=== PATIENT | male | born 2000 | race Two or more races ===

== ENCOUNTER 2023-03-18 16:35 | Inpatient (IN) | payer OTHER ==
[~2023-03-18] VITALS: Ht 167.6 cm; Wt 75.1 kg
[2023-03-18] MEDS ORDERED: NITROGLYCERIN 0.4 MG SL TAB SL PRN (21:45)
[2023-03-18] MEDS: SODIUM CHLORIDE 0.9% 1,000 ML IV SCH (21:45)
[2023-03-18] MEDS ORDERED: MORPHINE SULFATE INJ 2 MG/ml SYRG IV PRN (21:45)
[2023-03-18 22:30] VITALS: BP 108/66; PULSE 97; RESP 18; TEMP 98.5; O2SAT 100
[2023-03-18 22:48] VITALS: BP 108/66; PULSE 97; RESP 18; TEMP 98.5
[2023-03-18 23:00] LABS: Mean Corpuscular Volume 80.2 fL (80.0-100.0)
[2023-03-18 23:02] LABS: Mean Corpuscular Hemoglobin 27.5 pg (28.0-32.0); Mean Corpuscular Hgb Conc. 34.3 g/dL (32.0-36.0); Red Cell Distribution Width 17.6 % (11.8-14.3); White Blood Cell 2.1 10^3/uL (4.4-10.8)
[2023-03-18 23:12] LABS: INR 1.12 (0.9-1.15); Partial Thromboplastin Time 26.6 SEC (24.5-34.5); Prothrombin Time 11.7 sec (9.3-11.8)
[2023-03-18 23:13] LABS: Alanine Aminotransferase 21 U/L (7-40); Albumin 4.1 g/dL (3.2-4.8); Alkaline Phosphatase 79 U/L (46-116); Anion Gap 8 (5-15); Aspartate Aminotransferase 25 U/L (13-40); BUN/Creatinine Ratio 12.9 (10.0-20.0); Bilirubin, Total 0.3 mg/dL (0.2-1.0); Blood Urea Nitrogen 15 mg/dL (9-23); Calcium 8.9 mg/dL (8.7-10.4); Carbon Dioxide 24 mmol/L (20-30); Chloride 110 mmol/L (98-107); Glucose 104 mg/dL (74-106); Potassium 3.6 mmol/L (3.5-5.1); Sodium 142 mmol/L (136-145); Total Protein 6.7 g/dL (5.7-8.2)
[2023-03-18 23:24] LABS: Hemoglobin 5.5 g/dL (13.5-17.5)
[2023-03-18 23:28] LABS: Band Neutrophils % (manual) 0; Basophils % (manual) 0 (0.0-2.0); Eosinophils % (manual) 0 (0-7); Metamyelocytes % 0; Myelocytes % 0; Promyelocytes % 0; Reactive Lymphocytes 0
[2023-03-18 23:33] LABS: Thyroid Stimulating Hormone 3.66 uIU/mL (0.358-3.74)
[2023-03-19] VITALS (19 sets, daily range): BP systolic 93–128; BP diastolic 52–85; PULSE 68–100; RESP 16–18; TEMP 97.5–99.2; O2SAT 99–100
[2023-03-19 00:18] LABS: Anisocytosis Slight; Blast Cells 1; Lymphocytes % (manual) 93 (10.0-50.0); Monocytes % (manual) 2 (0-12)
[2023-03-19 00:19] LABS: Hypochromia Slight; Ovalocytes FEW; Platelet Estimate Decreased; Stomatocytes Few
[2023-03-19 04:50] LABS: Urine Bacteria NONE SEEN /hpf (None Seen); Urine Blood Negative /uL (Negative); Urine Clarity Clear (Clear); Urine Color Yellow (Yellow); Urine Mucus FEW (None Seen); Urine Protein, UAD Negative (Negative); Urine Specific Gravity 1.023 (1.001-1.035); Urine Urobilinogen Normal (Negative); Urine WBC 1 /hpf (0 - 3)
[2023-03-19] MEDS ORDERED: OMNIPAQUE 12mg/ml 500ml ORAL SOLUTION PO ONE (10:16)
[2023-03-19] MEDS: SODIUM CHLORIDE 0.9% 1,000 ML IV SCH (12:30)
[2023-03-19 15:16] LABS: % Iron Saturation 91.4 % (20-55)
[2023-03-19 15:22] LABS: Folate (Folic Acid) 6.98 ng/mL (>5.38)
[2023-03-19 15:27] LABS: Erythrocyte Sedimentation Rate 69 mm/hr (0-20)
[2023-03-19 20:28] LABS: Hemoglobin 6.8 g/dL (13.5-17.5)
[2023-03-19 22:01] LABS: Rapid Influenza A Negative (Negative)
[2023-03-19 22:02] LABS: Rapid Influenza B Positive (Negative)
[2023-03-20] VITALS (10 sets, daily range): BP systolic 108–132; BP diastolic 68–91; PULSE 60–83; RESP 16–20; TEMP 98–98.9; O2SAT 98–100
[2023-03-20] MEDS: SODIUM CHLORIDE 0.9% 1,000 ML IV SCH ×3 (00:38→21:23)
[2023-03-20 08:27] LABS: Hemoglobin 9.7 g/dL (13.5-17.5)
[2023-03-20 08:30] LABS: Hematocrit 28.2 % (41.0-53.0); Mean Corpuscular Hemoglobin 28.7 pg (28.0-32.0); Mean Corpuscular Hgb Conc. 34.4 g/dL (32.0-36.0); Mean Corpuscular Volume 83.5 fL (80.0-100.0); Red Blood Cells 3.38 10^6/uL (4.5-5.90)
[2023-03-20 08:32] LABS: Alanine Aminotransferase 43 U/L (7-40); Albumin 3.7 g/dL (3.2-4.8); Alkaline Phosphatase 82 U/L (46-116); Anion Gap 7 (5-15); Aspartate Aminotransferase 54 U/L (13-40); BUN/Creatinine Ratio 9.7 (10.0-20.0); Blood Urea Nitrogen 10 mg/dL (9-23); Calcium 9.3 mg/dL (8.5-10.1); Carbon Dioxide 22 mmol/L (20-30); Chloride 111 mmol/L (98-107); Glucose 88 mg/dL (74-106); Potassium 4.3 mmol/L (3.5-5.1); Sodium 140 mmol/L (136-145)
[2023-03-20 08:33] LABS: Bilirubin, Total 0.5 mg/dL (0.2-1.0)
[2023-03-20 08:47] LABS: White Blood Cell 1.9 10^3/uL (4.4-10.8)
[2023-03-20 09:57] LABS: Band Neutrophils % (manual) 0; Basophils % (manual) 0 (0.0-2.0); Blast Cells 0; Metamyelocytes % 0; Myelocytes % 0; Promyelocytes % 0
[2023-03-20] MEDS ORDERED: HYDROmorphone HCL 2 MG/ML VL/or syr IV PRN (11:00)
[2023-03-20 11:53] LABS: Eosinophils % (manual) 2 (0-7); Lymphocytes % (manual) 91 (10.0-50.0); Monocytes % (manual) 2 (0-12); Platelet Estimate Decreased; Reactive Lymphocytes 3; Smudge Cells 4 /100 WBC
[2023-03-20] MEDS: ACETAMINOPHEN 325 MG TAB PO PRN (21:19)
[2023-03-21] VITALS (10 sets, daily range): BP systolic 117–148; BP diastolic 72–96; PULSE 50–76; RESP 16–19; TEMP 98.2–99.4; O2SAT 93–99
[2023-03-21] MEDS: ACETAMINOPHEN 325 MG TAB PO PRN ×2 (02:52→15:25)
[2023-03-21 05:45] LABS: Hemoglobin 9.7 g/dL (13.5-17.5)
[2023-03-21 05:47] LABS: Hematocrit 28.2 % (41.0-53.0); Mean Corpuscular Hgb Conc. 34.5 g/dL (32.0-36.0); Mean Corpuscular Volume 81.3 fL (80.0-100.0); Red Blood Cells 3.47 10^6/uL (4.5-5.90); Red Cell Distribution Width 16.6 % (11.8-14.3)
[2023-03-21 05:53] LABS: Alanine Aminotransferase 63 U/L (7-40); Alkaline Phosphatase 126 U/L (46-116); Anion Gap 9 (5-15); BUN/Creatinine Ratio 11.7 (10.0-20.0); Blood Urea Nitrogen 13 mg/dL (9-23); Calcium 9.1 mg/dL (8.7-10.4); Carbon Dioxide 21 mmol/L (20-30); Chloride 108 mmol/L (98-107); Glucose 87 mg/dL (74-106); Sodium 138 mmol/L (136-145)
[2023-03-21 05:54] LABS: Albumin 3.6 g/dL (3.2-4.8); Aspartate Aminotransferase 81 U/L (13-40); Bilirubin, Total 0.8 mg/dL (0.2-1.0)
[2023-03-21 07:29] LABS: White Blood Cell 1.7 10^3/uL (4.4-10.8)
[2023-03-21 07:31] LABS: Band Neutrophils % (manual) 0; Basophils % (manual) 0 (0.0-2.0); Blast Cells 0; Eosinophils % (manual) 0 (0-7); Metamyelocytes % 0; Myelocytes % 0; Promyelocytes % 0
[2023-03-21 09:23] LABS: Anisocytosis Slight; Lymphocytes % (manual) 92 (10.0-50.0); Monocytes % (manual) 2 (0-12); Platelet Estimate Markedly Decreased; Reactive Lymphocytes 2
[2023-03-21] MEDS: SODIUM CHLORIDE 0.9% 1,000 ML IV SCH ×2 (09:45→19:45)
[2023-03-21 16:57] LABS: Mean Corpuscular Volume 83.9 fL (80.0-100.0)
[2023-03-21 16:59] LABS: Hematocrit 28.8 % (41.0-53.0); Hemoglobin 9.8 g/dL (13.5-17.5); Mean Corpuscular Hemoglobin 28.5 pg (28.0-32.0); Red Blood Cells 3.43 10^6/uL (4.5-5.90); Red Cell Distribution Width 16.3 % (11.8-14.3)
[2023-03-21 17:03] LABS: White Blood Cell 1.4 10^3/uL (4.4-10.8)
[2023-03-21 17:04] LABS: Band Neutrophils % (manual) 0; Basophils % (manual) 0 (0.0-2.0); Blast Cells 0; Eosinophils % (manual) 0 (0-7); Metamyelocytes % 0; Myelocytes % 0; Promyelocytes % 0
[2023-03-21 17:26] LABS: Lymphocytes % (manual) 89 (10.0-50.0); Monocytes % (manual) 2 (0-12); Reactive Lymphocytes 4
[2023-03-21 17:27] LABS: Ovalocytes FEW; Platelet Estimate Markedly Decreased
[2023-03-21 18:50] LABS: Basophils # (auto) 0 10 ^3/uL (0-0.2); Eosinophils # (auto) 0 10 ^3/uL (0-0.8); Lymphocytes # (auto) 1.8 10 ^3/uL (0.4-5.4); Mean Corpuscular Volume 82.5 fL (80.0-100.0); Monocytes # (auto) 0 10 ^3/uL (0-1.3); Neutrophils # (auto) 0.1 10 ^3/uL (1.6-8.6); Neutrophils % (auto) 4.3 % (37.0-80.0)
[2023-03-21 18:52] LABS: Basophils % (auto) 0.3 % (0.0-2.0); Eosinophils % (auto) 0.4 % (0.0-7.0); Hematocrit 28.3 % (41.0-53.0); Hemoglobin 9.7 g/dL (13.5-17.5); Lymphocytes % (auto) 93.8 % (10.0-50.0); Mean Corpuscular Hemoglobin 28.2 pg (28.0-32.0); Mean Corpuscular Hgb Conc. 34.2 g/dL (32.0-36.0); Monocytes % (auto) 1.2 % (0.0-12.0); Nucleated Red Blood Cells % 0.3 %; Red Blood Cells 3.43 10^6/uL (4.5-5.90); Red Cell Distribution Width 16.3 % (11.8-14.3)
[2023-03-21 19:08] LABS: Alanine Aminotransferase 58 U/L (7-40); Albumin 3.8 g/dL (3.2-4.8); Alkaline Phosphatase 130 U/L (46-116); Anion Gap 8 (5-15); Aspartate Aminotransferase 59 U/L (13-40); BUN/Creatinine Ratio 10.6 (10.0-20.0); Blood Urea Nitrogen 12 mg/dL (9-23); Calcium 9.1 mg/dL (8.7-10.4); Carbon Dioxide 21 mmol/L (20-30); Chloride 109 mmol/L (98-107); Glucose 89 mg/dL (74-106); Magnesium 1.8 mg/dL (1.6-2.6); Potassium 3.9 mmol/L (3.5-5.1); Sodium 138 mmol/L (136-145)
[2023-03-21 19:09] LABS: Bilirubin, Total 0.9 mg/dL (0.2-1.0); Total Protein 6.2 g/dL (5.7-8.2)
[2023-03-22] VITALS (7 sets, daily range): BP systolic 119–149; BP diastolic 72–87; PULSE 53–83; RESP 16–21; TEMP 98–98.6; O2SAT 98–100
[2023-03-22 00:53] LABS: COVID19 ANTIGEN SOFIA FIA NEGATIVE (NEGATIVE)
[2023-03-22] MEDS: SODIUM CHLORIDE 0.9% 1,000 ML IV SCH ×3 (05:45→19:27)
[2023-03-22 09:16] LABS: Hematocrit 27.3 % (41.0-53.0); Hemoglobin 9.3 g/dL (13.5-17.5); Mean Corpuscular Hemoglobin 28.1 pg (28.0-32.0); Mean Corpuscular Hgb Conc. 34.3 g/dL (32.0-36.0); Mean Corpuscular Volume 81.8 fL (80.0-100.0); Red Blood Cells 3.33 10^6/uL (4.5-5.90)
[2023-03-22 09:32] LABS: White Blood Cell 1.9 10^3/uL (4.4-10.8)
[2023-03-22 09:33] LABS: Alanine Aminotransferase 57 U/L (7-40); Albumin 3.5 g/dL (3.2-4.8); Alkaline Phosphatase 126 U/L (46-116); Anion Gap 7 (5-15); Aspartate Aminotransferase 51 U/L (13-40); BUN/Creatinine Ratio 10.7 (10.0-20.0); Band Neutrophils % (manual) 0; Basophils % (manual) 0 (0.0-2.0); Blast Cells 0; Blood Urea Nitrogen 12 mg/dL (9-23); Carbon Dioxide 22 mmol/L (20-30); Chloride 110 mmol/L (98-107); Eosinophils % (manual) 0 (0-7); Glucose 80 mg/dL (74-106); Metamyelocytes % 0; Myelocytes % 0; Potassium 4.2 mmol/L (3.5-5.1); Promyelocytes % 0; Sodium 139 mmol/L (136-145)
[2023-03-22 09:34] LABS: Bilirubin, Total 0.7 mg/dL (0.2-1.0); Total Protein 5.9 g/dL (5.7-8.2)
[2023-03-22 10:31] LABS: Monocytes % (manual) 2 (0-12)
[2023-03-22 10:32] LABS: Lymphocytes % (manual) 91 (10.0-50.0); Reactive Lymphocytes 3
[2023-03-22 10:33] LABS: Anisocytosis Slight; Platelet Estimate Markedly Decreased
[2023-03-22 13:39] LABS: Urine Bacteria NONE SEEN /hpf (None Seen); Urine Blood Negative /uL (Negative); Urine Clarity Clear (Clear); Urine Protein, UAD Negative (Negative); Urine Specific Gravity 1.011 (1.001-1.035); Urine Urobilinogen Normal (Negative); Urine WBC <1 /hpf (0 - 3); Urine pH 5.5 (5.0-8.0)
[2023-03-22 13:40] LABS: Urine Color Yellow (Yellow)
[2023-03-23] VITALS (7 sets, daily range): BP systolic 121–135; BP diastolic 71–86; PULSE 45–79; RESP 17–18; TEMP 97.7–98.8; O2SAT 98–100
[2023-03-23 05:16] LABS: Mean Corpuscular Hgb Conc. 34.5 g/dL (32.0-36.0); White Blood Cell 2.6 10^3/uL (4.4-10.8)
[2023-03-23 05:19] LABS: Hematocrit 28.2 % (41.0-53.0); Hemoglobin 9.7 g/dL (13.5-17.5); Mean Corpuscular Hemoglobin 28.2 pg (28.0-32.0); Mean Corpuscular Volume 81.7 fL (80.0-100.0); Red Blood Cells 3.45 10^6/uL (4.5-5.90); Red Cell Distribution Width 16.3 % (11.8-14.3)
[2023-03-23 05:33] LABS: Alanine Aminotransferase 51 U/L (7-40); Alkaline Phosphatase 127 U/L (46-116); Anion Gap 6 (5-15); BUN/Creatinine Ratio 10.7 (10.0-20.0); Blood Urea Nitrogen 12 mg/dL (9-23); Calcium 8.9 mg/dL (8.7-10.4); Carbon Dioxide 23 mmol/L (20-30); Chloride 109 mmol/L (98-107); Glucose 83 mg/dL (74-106); Potassium 4.1 mmol/L (3.5-5.1); Sodium 138 mmol/L (136-145)
[2023-03-23 05:34] LABS: Albumin 3.4 g/dL (3.2-4.8); Aspartate Aminotransferase 46 U/L (13-40); Bilirubin, Total 0.6 mg/dL (0.2-1.0); Total Protein 5.8 g/dL (5.7-8.2)
[2023-03-23 05:41] LABS: Band Neutrophils % (manual) 0; Basophils % (manual) 0 (0.0-2.0); Blast Cells 0; Eosinophils % (manual) 0 (0-7); Metamyelocytes % 0; Myelocytes % 0; Promyelocytes % 0; Reactive Lymphocytes 0
[2023-03-23 09:04] LABS: Lymphocytes % (manual) 91 (10.0-50.0); Monocytes % (manual) 3 (0-12)
[2023-03-23 09:05] LABS: Platelet Estimate Markedly Decreased
[2023-03-23 10:35] LABS: Hepatitis B Core Total AB Negative (Negative)
[2023-03-23] MEDS: SODIUM CHLORIDE 0.9% 1,000 ML IV SCH ×2 (12:08→21:45)
[2023-03-23 13:09] LABS: Hepatitis A Total Antibody Positive (Negative); Hepatitis B Surface Antibody Positive (Negative); Hepatitis B Surface Antigen Negative (Negative); Hepatitis C Antibody Negative (Negative)
[2023-03-24] VITALS (7 sets, daily range): BP systolic 113–126; BP diastolic 68–83; PULSE 51–75; RESP 16–18; TEMP 97.9–98.4; O2SAT 96–100
[2023-03-24 06:24] LABS: Alanine Aminotransferase 46 U/L (7-40); Albumin 3.6 g/dL (3.2-4.8); Alkaline Phosphatase 129 U/L (46-116); Anion Gap 8 (5-15); Aspartate Aminotransferase 37 U/L (13-40); BUN/Creatinine Ratio 13.2 (10.0-20.0); Bilirubin, Total 0.5 mg/dL (0.2-1.0); Blood Urea Nitrogen 14 mg/dL (9-23); Calcium 9.4 mg/dL (8.5-10.1); Carbon Dioxide 22 mmol/L (20-30); Chloride 109 mmol/L (98-107); Glucose 83 mg/dL (74-106); Sodium 139 mmol/L (136-145)
[2023-03-24 08:02] LABS: Red Blood Cells 3.43 10^6/uL (4.5-5.90); White Blood Cell 2.6 10^3/uL (4.4-10.8)
[2023-03-24 08:04] LABS: Hematocrit 28.1 % (41.0-53.0); Hemoglobin 9.8 g/dL (13.5-17.5); Mean Corpuscular Hemoglobin 28.4 pg (28.0-32.0); Mean Corpuscular Hgb Conc. 34.7 g/dL (32.0-36.0); Mean Corpuscular Volume 81.9 fL (80.0-100.0)
[2023-03-24 08:08] LABS: Band Neutrophils % (manual) 0; Basophils % (manual) 0 (0.0-2.0); Blast Cells 0; Metamyelocytes % 0; Myelocytes % 0; Promyelocytes % 0; Reactive Lymphocytes 0
[2023-03-24] MEDS: SODIUM CHLORIDE 0.9% 1,000 ML IV SCH ×2 (11:30→17:45)
[2023-03-24 13:42] LABS: Eosinophils % (manual) 1 (0-7); Lymphocytes % (manual) 93 (10.0-50.0); Monocytes % (manual) 2 (0-12)
[2023-03-24 13:48] LABS: Platelet Estimate Markedly Decreased
[2023-03-24] MEDS: ACETAMINOPHEN 325 MG TAB PO PRN (23:52)
[2023-03-25] VITALS (7 sets, daily range): BP systolic 112–131; BP diastolic 64–80; PULSE 54–70; RESP 16–19; TEMP 97.5–98.5; O2SAT 98–100
[2023-03-25] MEDS: SODIUM CHLORIDE 0.9% 1,000 ML IV SCH ×2 (03:45→15:14)
[2023-03-25 06:23] LABS: Hemoglobin 9.8 g/dL (13.5-17.5); Red Cell Distribution Width 16.1 % (11.8-14.3); White Blood Cell 3.1 10^3/uL (4.4-10.8)
[2023-03-25 06:27] LABS: Hematocrit 29.1 % (41.0-53.0); Mean Corpuscular Hemoglobin 27.9 pg (28.0-32.0); Mean Corpuscular Hgb Conc. 33.7 g/dL (32.0-36.0); Red Blood Cells 3.51 10^6/uL (4.5-5.90)
[2023-03-25 06:40] LABS: Alanine Aminotransferase 54 U/L (7-40); Albumin 3.7 g/dL (3.2-4.8); Alkaline Phosphatase 127 U/L (46-116); Anion Gap 8 (5-15); Aspartate Aminotransferase 50 U/L (13-40); BUN/Creatinine Ratio 13.5 (10.0-20.0); Bilirubin, Total 0.4 mg/dL (0.2-1.0); Blood Urea Nitrogen 14 mg/dL (9-23); Calcium 9.8 mg/dL (8.5-10.1); Carbon Dioxide 23 mmol/L (20-30); Chloride 108 mmol/L (98-107); Glucose 87 mg/dL (74-106); Potassium 4.2 mmol/L (3.5-5.1); Sodium 139 mmol/L (136-145); Total Protein 6.3 g/dL (5.7-8.2)
[2023-03-25 06:46] LABS: Band Neutrophils % (manual) 0; Basophils % (manual) 0 (0.0-2.0); Blast Cells 0; Eosinophils % (manual) 0 (0-7); Metamyelocytes % 0; Myelocytes % 0; Promyelocytes % 0; Reactive Lymphocytes 0
[2023-03-25 10:31] LABS: Lymphocytes % (manual) 98 (10.0-50.0); Monocytes % (manual) 1 (0-12); Platelet Estimate Markedly Decreased
[2023-03-25] MEDS: ACETAMINOPHEN 325 MG TAB PO PRN (21:15)
[2023-03-26 05:00] VITALS: BP 106/67; PULSE 75; RESP 19; TEMP 98; O2SAT 99
[2023-03-26 06:53] LABS: Hemoglobin 9.7 g/dL (13.5-17.5); Red Cell Distribution Width 16.1 % (11.8-14.3)
[2023-03-26 06:55] LABS: Hematocrit 28.6 % (41.0-53.0); Mean Corpuscular Hemoglobin 27.7 pg (28.0-32.0); Mean Corpuscular Volume 81.4 fL (80.0-100.0); Red Blood Cells 3.52 10^6/uL (4.5-5.90); White Blood Cell 2.5 10^3/uL (4.4-10.8)
[2023-03-26 07:15] LABS: Chloride 107 mmol/L (98-107); Potassium 4.2 mmol/L (3.5-5.1); Sodium 138 mmol/L (136-145)
[2023-03-26 07:16] LABS: Anion Gap 9 (5-15); Calcium 9.4 mg/dL (8.7-10.4); Carbon Dioxide 22 mmol/L (20-30)
[2023-03-26 07:21] LABS: BUN/Creatinine Ratio 11.7 (10.0-20.0); Blood Urea Nitrogen 12 mg/dL (9-23); Glucose 88 mg/dL (74-106)
[2023-03-26 07:27] LABS: Band Neutrophils % (manual) 0; Basophils % (manual) 0 (0.0-2.0); Promyelocytes % 0; Reactive Lymphocytes 0
[2023-03-26] MEDS: ACETAMINOPHEN 325 MG TAB PO PRN (08:48)
[2023-03-26] MEDS: SODIUM CHLORIDE 0.9% 1,000 ML IV SCH ×3 (08:49→19:45)
[2023-03-26 09:00] VITALS: BP 121/77; PULSE 62; RESP 12; TEMP 98; O2SAT 99
[2023-03-26 10:39] LABS: Platelet Estimate Markedly Decreased
[2023-03-26 10:50] LABS: Blast Cells 5; Eosinophils % (manual) 2 (0-7); Lymphocytes % (manual) 87 (10.0-50.0); Metamyelocytes % 1; Monocytes % (manual) 3 (0-12); Myelocytes % 1
[2023-03-26 13:00] VITALS: BP 114/68; PULSE 60; RESP 14; TEMP 97.8; O2SAT 100
[2023-03-26 16:50] VITALS: BP 101/70; PULSE 65; RESP 16; TEMP 98; O2SAT 99
[2023-03-26 22:00] VITALS: BP 120/70; PULSE 62; RESP 19; TEMP 98.8; O2SAT 100
[2023-03-27 05:00] VITALS: BP 108/59; PULSE 71; RESP 19; TEMP 98.8; O2SAT 100
[2023-03-27] MEDS: SODIUM CHLORIDE 0.9% 1,000 ML IV SCH ×2 (05:45→16:05)
[2023-03-27 06:02] LABS: Chloride 105 mmol/L (98-107); Sodium 137 mmol/L (136-145)
[2023-03-27 06:03] LABS: Anion Gap 10 (5-15); Calcium 9.8 mg/dL (8.7-10.4); Carbon Dioxide 22 mmol/L (20-30)
[2023-03-27 06:08] LABS: Blood Urea Nitrogen 12 mg/dL (9-23); Glucose 89 mg/dL (74-106)
[2023-03-27 06:12] LABS: Hemoglobin 10.4 g/dL (13.5-17.5); White Blood Cell 2.6 10^3/uL (4.4-10.8)
[2023-03-27 06:15] LABS: Hematocrit 30.4 % (41.0-53.0); Mean Corpuscular Hemoglobin 27.5 pg (28.0-32.0); Red Blood Cells 3.76 10^6/uL (4.5-5.90); Red Cell Distribution Width 16.2 % (11.8-14.3)
[2023-03-27 06:36] LABS: Band Neutrophils % (manual) 0; Basophils % (manual) 0 (0.0-2.0); Eosinophils % (manual) 0 (0-7); Metamyelocytes % 0; Myelocytes % 0; Promyelocytes % 0
[2023-03-27 06:37] LABS: Blast Cells 0; Reactive Lymphocytes 0
[2023-03-27 08:20] VITALS: BP 106/60; PULSE 74; RESP 19; TEMP 98.8; O2SAT 99
[2023-03-27 10:09] LABS: Lymphocytes % (manual) 97 (10.0-50.0); Monocytes % (manual) 1 (0-12)
[2023-03-27 10:23] LABS: Platelet Estimate Marked
[2023-03-27 12:30] VITALS: BP 113/66; PULSE 61; RESP 19; TEMP 98.2; O2SAT 99
[2023-03-27 16:15] VITALS: BP 114/61; PULSE 76; RESP 19; TEMP 98.6; O2SAT 98
[2023-03-27] MEDS: ACETAMINOPHEN 325 MG TAB PO PRN (21:05)
[2023-03-27 23:10] VITALS: BP 124/80; PULSE 83; RESP 19; TEMP 98.2; O2SAT 100
[2023-03-28] MEDS: SODIUM CHLORIDE 0.9% 1,000 ML IV SCH ×3 (03:06→20:58)
[2023-03-28 05:38] VITALS: BP 121/72; PULSE 72; RESP 18; TEMP 99.2; O2SAT 99
[2023-03-28 06:17] LABS: Hemoglobin 9.5 g/dL (13.5-17.5)
[2023-03-28 06:19] LABS: Mean Corpuscular Hemoglobin 27.6 pg (28.0-32.0); Mean Corpuscular Hgb Conc. 34.1 g/dL (32.0-36.0); Mean Corpuscular Volume 81.2 fL (80.0-100.0); Red Blood Cells 3.45 10^6/uL (4.5-5.90); Red Cell Distribution Width 15.6 % (11.8-14.3); White Blood Cell 2.4 10^3/uL (4.4-10.8)
[2023-03-28 06:29] LABS: Anion Gap 7 (5-15); Carbon Dioxide 23 mmol/L (20-30); Chloride 105 mmol/L (98-107); Sodium 135 mmol/L (136-145)
[2023-03-28 06:31] LABS: Calcium 9.3 mg/dL (8.7-10.4)
[2023-03-28 06:35] LABS: BUN/Creatinine Ratio 16.8 (10.0-20.0); Blood Urea Nitrogen 17 mg/dL (9-23); Glucose 90 mg/dL (74-106)
[2023-03-28 06:50] LABS: Band Neutrophils % (manual) 0; Basophils % (manual) 0 (0.0-2.0); Blast Cells 0; Eosinophils % (manual) 0 (0-7); Metamyelocytes % 0; Monocytes % (manual) 0 (0-12); Myelocytes % 0; Promyelocytes % 0; Reactive Lymphocytes 0
[2023-03-28 07:30] VITALS: TEMP 37.3
[2023-03-28 08:15] VITALS: BP 115/79; PULSE 67; RESP 19; TEMP 98.7; O2SAT 100
[2023-03-28 09:34] LABS: Lymphocytes % (manual) 98 (10.0-50.0)
[2023-03-28 09:39] LABS: Platelet Estimate Markedly Decreased
[2023-03-28 12:20] VITALS: BP 113/61; PULSE 72; RESP 19; TEMP 97.9; O2SAT 100
[2023-03-28 16:20] VITALS: BP 117/80; PULSE 93; RESP 20; TEMP 99.2; O2SAT 99
[2023-03-28 22:00] VITALS: BP 124/81; PULSE 65; RESP 17; TEMP 99; O2SAT 99
[2023-03-29] MEDS: ACETAMINOPHEN 325 MG TAB PO PRN ×2 (04:51→22:01)
[2023-03-29 05:00] VITALS: BP 108/75; PULSE 87; RESP 17; TEMP 98.1; O2SAT 100
[2023-03-29 09:00] VITALS: BP 119/73; PULSE 70; RESP 17; TEMP 98.1; O2SAT 99
[2023-03-29] MEDS: SODIUM CHLORIDE 0.9% 1,000 ML IV SCH ×2 (10:00→17:45)
[2023-03-29 13:00] VITALS: BP 115/70; PULSE 75; RESP 17; TEMP 98.1; O2SAT 99
[2023-03-29 17:00] VITALS: BP 129/79; PULSE 95; RESP 17; TEMP 98.1; O2SAT 100
[2023-03-29 19:03] LABS: Hemoglobin 9.4 g/dL (13.5-17.5)
[2023-03-29 19:06] LABS: Hematocrit 27.4 % (41.0-53.0); Mean Corpuscular Hemoglobin 27.9 pg (28.0-32.0); Mean Corpuscular Hgb Conc. 34.5 g/dL (32.0-36.0); Mean Corpuscular Volume 80.9 fL (80.0-100.0); Red Blood Cells 3.39 10^6/uL (4.5-5.90)
[2023-03-29 19:33] LABS: Band Neutrophils % (manual) 0; Basophils % (manual) 0 (0.0-2.0); Blast Cells 0; Eosinophils % (manual) 0 (0-7); Metamyelocytes % 0; Myelocytes % 0; Promyelocytes % 0; White Blood Cell 1.7 10^3/uL (4.4-10.8)
[2023-03-29 19:35] LABS: Lymphocytes % (manual) 89 (10.0-50.0); Monocytes % (manual) 2 (0-12); Platelet Estimate Markedly Decreased; Reactive Lymphocytes 5
[2023-03-29 22:00] VITALS: BP 130/86; PULSE 70; RESP 17; TEMP 98.7; O2SAT 99
[2023-03-30] VITALS (12 sets, daily range): BP systolic 107–135; BP diastolic 61–89; PULSE 70–83; RESP 16–19; TEMP 97.8–98.9; O2SAT 96–99
[2023-03-30] MEDS: SODIUM CHLORIDE 0.9% 1,000 ML IV SCH ×3 (04:47→23:45)
[2023-03-30] MEDS: ACETAMINOPHEN 325 MG TAB PO PRN ×2 (04:49→09:47)
[2023-03-31] VITALS (12 sets, daily range): BP systolic 112–136; BP diastolic 60–76; PULSE 80–105; RESP 16–20; TEMP 97.8–99.3; O2SAT 97–99
[2023-03-31 07:13] LABS: Hematocrit 26.8 % (41.0-53.0); Hemoglobin 9.3 g/dL (13.5-17.5)
[2023-03-31 07:16] LABS: Mean Corpuscular Hemoglobin 27.9 pg (28.0-32.0); Mean Corpuscular Hgb Conc. 34.6 g/dL (32.0-36.0); Mean Corpuscular Volume 80.7 fL (80.0-100.0); Red Blood Cells 3.33 10^6/uL (4.5-5.90); Red Cell Distribution Width 15.5 % (11.8-14.3)
[2023-03-31 07:20] LABS: White Blood Cell 1.9 10^3/uL (4.4-10.8)
[2023-03-31 07:21] LABS: Band Neutrophils % (manual) 0; Basophils % (manual) 0 (0.0-2.0); Blast Cells 0; Metamyelocytes % 0; Promyelocytes % 0; Reactive Lymphocytes 0
[2023-03-31 07:40] LABS: Alanine Aminotransferase 60 U/L (7-40); Albumin 4.3 g/dL (3.2-4.8); Alkaline Phosphatase 81 U/L (46-116); Anion Gap 10 (5-15); Aspartate Aminotransferase 36 U/L (13-40); BUN/Creatinine Ratio 9.6 (10.0-20.0); Bilirubin, Total 0.4 mg/dL (0.2-1.0); Blood Urea Nitrogen 11 mg/dL (9-23); Carbon Dioxide 25 mmol/L (20-30); Chloride 102 mmol/L (98-107); Glucose 85 mg/dL (74-106); Sodium 137 mmol/L (136-145)
[2023-03-31 07:41] LABS: Total Protein 7.3 g/dL (5.7-8.2)
[2023-03-31 09:38] LABS: Eosinophils % (manual) 1 (0-7); Lymphocytes % (manual) 88 (10.0-50.0); Monocytes % (manual) 1 (0-12); Myelocytes % 3; Platelet Estimate Decreased
[2023-03-31] MEDS: SODIUM CHLORIDE 0.9% 1,000 ML IV SCH ×2 (10:49→19:45)
[2023-03-31] MEDS: ACETAMINOPHEN 325 MG TAB PO PRN (23:45)
[2023-04-01] VITALS (8 sets, daily range): BP systolic 100–159; BP diastolic 58–79; PULSE 83–100; RESP 16–20; TEMP 98.2–98.8; O2SAT 95–100
[2023-04-01] MEDS: MORPHINE SULFATE INJ 2 MG/ml SYRG IV PRN ×4 (00:29→18:07)
[2023-04-01] MEDS: SODIUM CHLORIDE 0.9% 1,000 ML IV SCH ×2 (05:45→18:04)
[2023-04-01 08:17] LABS: Basophils # (auto) 0 10 ^3/uL (0-0.2); Basophils % (auto) 0.1 % (0.0-2.0); Eosinophils # (auto) 0 10 ^3/uL (0-0.8); Eosinophils % (auto) 0.2 % (0.0-7.0); Hemoglobin 9.5 g/dL (13.5-17.5); Lymphocytes # (auto) 1.7 10 ^3/uL (0.4-5.4); Monocytes # (auto) 0 10 ^3/uL (0-1.3); Monocytes % (auto) 1.3 % (0.0-12.0); Neutrophils # (auto) 0.1 10 ^3/uL (1.6-8.6); Nucleated Red Blood Cells % 0.5 %
[2023-04-01 08:19] LABS: Hematocrit 27.8 % (41.0-53.0); Mean Corpuscular Hemoglobin 27.8 pg (28.0-32.0); Mean Corpuscular Hgb Conc. 34.2 g/dL (32.0-36.0); Mean Corpuscular Volume 81.4 fL (80.0-100.0); Neutrophils % (auto) 3.6 % (37.0-80.0); Red Blood Cells 3.41 10^6/uL (4.5-5.90); Red Cell Distribution Width 15.4 % (11.8-14.3)
[2023-04-01 08:20] LABS: Lymphocytes % (auto) 94.8 % (10.0-50.0)
[2023-04-01 08:22] LABS: White Blood Cell 1.8 10^3/uL (4.4-10.8)
[2023-04-01] MEDS: ACETAMINOPHEN 325 MG TAB PO PRN (08:51)
[2023-04-02] MEDS: MORPHINE SULFATE INJ 2 MG/ml SYRG IV PRN (00:33)
[2023-04-02 05:00] VITALS: BP 122/77; PULSE 79; RESP 18; TEMP 98; O2SAT 99
[2023-04-02 05:59] LABS: Hematocrit 25.7 % (41.0-53.0); Red Blood Cells 3.14 10^6/uL (4.5-5.90); White Blood Cell 2.2 10^3/uL (4.4-10.8)
[2023-04-02 06:01] LABS: Hemoglobin 8.7 g/dL (13.5-17.5); Mean Corpuscular Hemoglobin 27.7 pg (28.0-32.0); Mean Corpuscular Hgb Conc. 33.8 g/dL (32.0-36.0); Mean Corpuscular Volume 81.9 fL (80.0-100.0); Red Cell Distribution Width 15.5 % (11.8-14.3)
[2023-04-02 06:29] LABS: Band Neutrophils % (manual) 0; Basophils % (manual) 0 (0.0-2.0); Blast Cells 0; Eosinophils % (manual) 0 (0-7); Metamyelocytes % 0; Myelocytes % 0; Promyelocytes % 0
[2023-04-02 08:04] LABS: Anisocytosis Slight; Lymphocytes % (manual) 94 (10.0-50.0); Monocytes % (manual) 1 (0-12); Platelet Estimate Markedly Decreased; Reactive Lymphocytes 2
== END 2023-04-02 07:55 | disposition short-term general hospital (02) | DRG 835 ==
LOC: TELE-CENTR 21:39 → UNDOADMIN 21:39 → TELE-CENTR 21:57 → CENTRAL 03-20 10:23
PROVIDERS: ADMIT Internal Medicine; ATTEND Student in an Organized Health Care Education/Training Program
PROC: 30233N1 Transfusion of Nonautologous Red Blood Cells into Peripheral Vein, Percutaneous Approach (ICD-10-PCS; 2023-03-19)
PROC: 079T3ZX Drainage of Bone Marrow, Percutaneous Approach, Diagnostic (ICD-10-PCS; principal; 2023-03-20)
PROC: 07DT3ZX Extraction of Bone Marrow, Percutaneous Approach, Diagnostic (ICD-10-PCS; 2023-03-20)
PROC: 30233R1 Transfusion of Nonautologous Platelets into Peripheral Vein, Percutaneous Approach (ICD-10-PCS; 2023-03-21)
DX: C91.00 Acute lymphoblastic leukemia not having achieved remission (principal); D61.818 Other pancytopenia; J10.1 Influenza due to other identified influenza virus with other respiratory manifestations; Z83.3 Family history of diabetes mellitus; Z82.49 Family history of ischemic heart disease and other diseases of the circulatory system; Z20.822 Contact with and (suspected) exposure to COVID-19
CPT/HCPCS: 36415; 71045; 71260; 72100; 74177; 80048; 80053; 81001; 82270; 82607; 82746; 83540; 83550; 83615; 83735; 84443; 85007; 85014; 85018; 85025; 85027; 85045; 85610; 85652; 85730; 86141; 86703; 86704; 86706; 86708; 86709; 86803; 86850; 86880; 86900; 86901; 86920; 87081; 87340; 87426; 87804; 97110; 97116; 97163; 97530; G0378